=== PATIENT | male | born 1930 | race Caucasian/White ===

== ENCOUNTER 2019-04-01 04:39 | Inpatient (IN) | payer MEDICARE ==
[~2019-04-01] VITALS: Ht 180.3 cm; Wt 79.1 kg
[2019-04-01] VITALS (26 sets, daily range): BP systolic 88–145; BP diastolic 50–104; Ht 180.3 cm; Wt 79.1 kg
--- NOTE | ~2019-04-01 | HEMODYNAMI ---
PATIENT:CAROLYN RICHMOND MEDICAL RECORD: [id number] : [birth year] LOCATION:[facility] DDavieCV02 ADMISSION DATE: 04/01/19 Generatedon:04/01/201912:54 Patient name: CAROLYN RICHMOND Patient #: [id number] SSN: [id number] : 1930 Date of study: 04/01/2019 Page: Of Hemodynamic Procedure Report Patient Data Patient Demographics Procedure consent was obtained First Name: CAROLYN Gender: Male Last Name: BASILIO : 1930 Middle Initial: A Age: 89 year(s) Patient #: [id number] Race: SSN: [id number] Additional ID: [id number] Contact details Address: [facility] [address] KNOWN ADDRESS State: [place] City: [facility] [place], [place] Zip code: [address] Admission Admission Data Admission Date: 04/01/2019 Admission Time: 6:17 Arrival Date: 04/01/2019 Arrival Time: 6:17 Admit Source: Emergency Insurance Payor: None department Room #: D.CV02 Height (in.): 70.87 BSA: 2 (m2) Height (cm.): 180 BMI: 24.69 (kg/m2) Weight (lbs.): 176.37 Weight (kg.): 80 Lab Results Lab Result Date: 04/01/2019 Lab Result Time: 0:00 Biochemistry Name Units Result Min Max BUN mg/dl 23 --(----)-* 7 18 Creatinine mg/dl 0.8 --(-*--)-- 0.6 1.3 eGFR ml/min 90 --(*---)-- 90 120 NONAFRICAN CBC Name Units Result Min Max Hemoglobin g/dl 12.4 *-(----)-- 13.5 17.5 Procedure Procedure Types Cath Procedure Diagnostic Procedure LHC LHC w/Coronaries Procedure Description Procedure Date Procedure Date: 04/01/2019 Procedure Start Time: 12:26 Procedure End Time: 12:52 Procedure Staff Name Function Cliff Rose MD Performing Physician Kiersten Eldridge RT Monitor Nimco Ornelas RT Scrub Terell Villa RN Nurse Geneva Paul RN Commercial Account Executive Procedure Data Cath Procedure Fluoroscopy Diagnostic fluoroscopy Total fluoroscopy Time: 6.3 time: 6.3 min min Diagnostic fluoroscopy Total fluoroscopy dose: dose: 1343 mGy 1343 mGy Contrast Material Contrast Material Type Amount (ml) Isovue 300 112 Entry Location Entry Primary Successful Side Size Upsize Upsize Entry Closure Succes sful Closure Location (Fr) 1 (Fr) 2 (Fr) Remarks Device Remarks Femoral Right 5 Fr 6 Fr 6 Fr Exoseal artery Long Short Estimated blood loss: 5 ml Diagnostic catheters Device Type Used For End Catheter Placement MULTIPACK JL 4.0 5Fr Left Coronary catheter Angiography MULTIPACK 3DRC 5Fr Right Coronary catheter Angiography MULTIPACK Pigtail 5 Fr LV Angiography catheter MULTIPACK Pigtail 5 Fr LV Angiography catheter Procedure Complications No complications Procedure Medications Medication Administration Route Dosage 0.9% NaCl I.V. 100 ml/hr Oxygen etCO2 Nasal cannula 2 l/min Lidocaine 2% added to field 20 Heparin Flush Bag added to field 2 bags (1000units/500ml NS) Versed I.V. 2 mg Fentanyl I.V. 50 mcg Heparin Bolus I.V. 5000 units Integrilin (Bolus I.V. 7.3 ml 2mg/ml) Integrilin (Bolus wasted 2.7 ml 2mg/ml) Plavix P.O. 600 mg Hemodynamics Rest BSA: 2 (m2) HGB: 12.4 (g/dl) O2 Consumption: Estimated: 226.14 (ml/min) O2 Consu mption indexed: Estimated:113.07 (ml/min/m) Heart Rate: 70 (bpm) Pressure Samples Time Site Value (mmHg) Purpose Heart Use Rate(bpm) 12:45 LV 126/13,22 Snapshot 74 12:45 AO 151/86(114) Pullback 78 12:45 LV 129/16,21 Pullback 78 Gradients Valve Time Site 1 Site 2 Mean SEP/DFP Peak To Heart Use (mmHg) (sec/min) Peak Rate (mmHg) (bpm) Aortic 12:45 LV AO 0 78 129/16,21 151/86(114) Calculations Valve P-P Mean Valve Index Valve Source Name Gradient Area Flow (cm2) Aortic 0 0 Snapshots Pre Cath Intra NCS Post Cath Vital Signs Time Heart Resp SPO2 etCO2 NIBP (mmHg) Rhythm Pain Sedation Rate (ipm) (%) (mmHg) Status Level (bpm) 12:09:23 69 20 98 32.3 138/91(117) NSR 0 (11) 10(A) , No pain 12:13:33 71 13 99 17.2 133/78(95) NSR 0 (11) 10(A) , No pain 12:17:40 68 13 98 32.3 122/79(95) NSR 0 (11) 10(A) , No pain 12:21:46 69 13 99 12 114/73(96) NSR 0 (11) 9(A) , No pain 12:25:48 72 12 98 27.7 114/76(94) NSR 0 (11) 9(A) , No pain 12:29:50 72 13 97 17.2 116/73(90) NSR 0 (11) 9(A) , No pain 12:33:53 76 13 98 21.8 106/72(83) NSR 0 (11) 9(A) , No pain 12:37:59 67 11 98 18.8 102/56(78) NSR 0 (11) 9(A) , No pain 12:41:59 73 12 98 27.7 102/69(89) NSR 0 (11) 9(A) , No pain 12:46:45 75 12 97 29.2 134/89(106) NSR 0 (11) 10(A) , No pain 12:50:49 81 12 96 39.8 152/90(130) NSR 0 (11) 10(A) , No pain Medications Time Medication Route Dose Verified Delivered Reason Notes Effectiveness by by 12:08:41 0.9% NaCl I.V. 100 Cliff Bean used for ml/hr Rose Humberto procedure RN 12:08:48 Oxygen etCO2 2 Cliff Bean used for Nasal l/min Rose Humberto procedure cannula RN 12:08:53 Lidocaine 2% added 20ml Cliff Coronado for local to vial [facility] anesthetic field MD AVINA 12:08:57 Heparin Flush added 2 Cliff Coronado used for Bag to bags RoseJosef Rose procedure (1000units/500ml field MD AVINA NS) 12:16:39 Versed I.V. 2 mg Cliff Bean for sedation St Josef Paul MD RN 12:16:47 Fentanyl I.V. 50 Cliff Lotta for sedation mcg St Josef Paul MD RN 12:35:14 Heparin Bolus I.V. 5000 Cliff Lotta for verif ied units St Josef Paul anticoagulation with Dr. MD CHAY Fonseca 12:35:30 Integrilin I.V. 7.3 Cliff Lotta for (Bolus 2mg/ml) ml [facility] Josef Paul antiplatelet RN therapy 12:35:52 Integrilin wasted 2.7 Cliff Bean for (Bolus 2mg/ml) ml [facility] Josef Paul antiplatelet RN therapy 12:36:17 Plavix P.O. 600 Cliff Bean for mg [facility] Josef Paul antiplatelet RN therapy Procedure Log Time Note 11:42:37 Diagnostic Cath Status : Urgent 11:43:10 Informed consent obtained and on chart 11:44:54 Terell Villa RN sent for patient. Start room use. 11:44:56 Time tracking: Regular hours (M-F 7:00 - 5:00) 11:45:01 Plan of Care:Hemodynamics will remain stable., Cardiac rhythm will remain stable., Comfort level will be maintained., Respiratory function will remain adequate., Patient/ family verbilizes understanding of procedure., Procedure tolerated without complication., Recovers from procedure without complications.. 11:46:26 Admit Source: Emergency department 11:46:31 Arrival Date: 04/01/2019 6:17:00 AM 11:46:39 Insurance Payor : None 11:48:32 Lab Result : eGFR NONAFRICAN 90 ml/min 11:48:32 Lab Result : Hemoglobin 12.4 g/dl 11:48:32 Lab Result : BUN 23 mg/dl 11:48:32 Lab Result : Creatinine 0.8 mg/dl 11:48:45 Patient Weight : 176.37 lbs 11:48:51 Patient Height : 70.87 inches 11:57:28 Patient received from CVICU to CCL 2 Alert and oriented. Tansferred to table in Supine position. 11:57:29 Warm blankets applied, and refugio hugger turned on for patient comfort. 11:57:30 Correct patient and procedure confirmed by team. 11:57:31 ECG and BP/O2 sat monitors applied to patient. 12:00:08 Stress Test: no; N/A ? 12:03:41 Risk of Mortality: 6.4 12:03:49 Risk of blood transfusion: 5.8 12:03:55 Risk of ARBEN: 11.5 12:08:16 Vital chart was started 12:08:41 0.9% NaCl 100 ml/hr I.V. was administered by Geneva Paul RN; used for procedure; Verbal order read back and verified. 12:08:48 Oxygen 2 l/min etCO2 Nasal cannula was administered by Geneva Paul RN; used for procedure; Verbal order read back and verified. 12:08:53 Lidocaine 2% 20ml vial added to field was administered by Cliff Rose MD; for local anesthetic; Verbal order read back and verified. 12:08:57 Heparin Flush Bag (1000units/500ml NS) 2 bags added to field was administered by Cliff Rose MD; used for procedure; Verbal order read back and verified. 12:10:37 Baseline sample Acquired. 12:10:41 Rhythm: sinus rhythm 12:10:42 Full Disclosure recording started 12:10:47 H&P Date Dictated: 04/01/2019 New H&P dictated by physician.. 12:10:49 Pre-procedure instructions explained to patient. 12:10:49 Pre-op teaching completed and patient verbalized understanding. 12:10:51 Family in waiting room. 12:10:52 Patient NPO since Midnight. 12:10:57 Is the patient allergic to Iodine/contrast media? No. 12:10:58 Was the patient premedicated? Yes 12:11:01 Is patient on blood thinner?Yes 12:11:05 ACC The patient was administered the following blood thiners within the last 24 hours: ACCAspirin 12:11:09 Patient diabetic? No. 12:11:11 Previous problem with sedation/anesthesia? No ? 12:11:13 Snore? No 12:11:14 Sleep apnea? No 12:11:15 Deviated septum? No 12:11:16 Opens mouth fully? Yes 12:11:17 Sticks out tongue? Yes 12:11:19 Airway obstruction? No ? 12:11:22 Dentures? No ? 12:12:21 Pre procedure: right dorsailis pedis pulse 2+ Normal; easily identifiable; not easily obliterated 12:12:23 Pre procedure: left dorsailis pedis pulse 2+ Normal; easily identifiable; not easily obliterated 12:12:25 Patient pain scale 0/10 ?. 12:12:39 IV patent on arrival in left antecubital with 0.9% NaCl at [facility]. 12:12:42 Lab results completed and on chart. 12:12:52 Right groin area was prepped with chlora-prep and draped in sterile fashion 12:12:53 Alarms reviewed by R. N. 12:12:53 Sharps counted by scrub and verified by R.N. 12:12:58 Physician arrived 12:12:58 --------ALL STOP TIME OUT------ 12:12:59 Final Timeout: patient, procedure, and site verified with staff and physician. All members of the team are in agreement. 12:13:01 Right groin site verified by team. 12:13:05 Fire Safety Assessment: A--An alcohol-based skin anteseptic being used preoperatively., C--Open oxygen or nitrous oxide is being used., D--An ESU, laser, or fiber-optic light is being used. 12:13:09 Physical assessment completed. ASA score P 2 - A patient with mild systemic disease as per Cliff Rose MD. 12:13:15 1) 90+ Normal kidney functon but urine findings or structural abnormalities or genetic trait point to kidney disease. 12:13:33 Maximum allowable contrast dose (3.7 X eGFR X 0.75)250 ml. 12:13:38 Sedation plan: IV Moderate Sedation Medication:Versed, Fentanyl 12:13:56 Use device set Femoral Dx 12:13:58 ACIST Syringe (00917) opened to sterile field. 12:13:59 Bag Decanter (2002) opened to sterile field. 12:14:01 Medline Cath Pack ([id number]) opened to sterile field. 12:14:06 ACIST Hand Control (96361) opened to sterile field. 12:14:07 ACIST Manifold (28902) opened to sterile field. 12:14:08 DIAGNOSTIC Multipack 5Fr catheter set (RR3273) opened to sterile field. 12:14:09 Tegaderm 4 x 4 (1626W) opened to sterile field. 12:14:11 SHEATH 5FR [place] (BJE015) opened to sterile field. 12:14:12 EMERALD Guide Wire (502-133) opened to sterile field. 12:16:39 Versed 2 mg I.V. was administered by Geneva Paul RN; for sedation; Verbal order read back and verified. 12:16:47 Fentanyl 50 mcg I.V. was administered by Geneva Paul RN; for sedation; Verbal order read back and verified. 12:23:39 Zero performed for pressure channel P1 12:25:45 Procedure started. 12:26:06 Local anesthetic to right femoral artery with Lidocaine 2% by Cilff Rose MD.INITIAL ACCESS ONLY 12:26:17 A 5 Fr sheath was inserted into the Right Femoral artery 12:27:22 A MULTIPACK JL 4.0 5Fr catheter was advanced over the wire and used for Left Coronary Angiography. 12:27:34 LCA angiography performed. 12:27:38 Injector settings: Ml/sec: 3, Volume: 6, 12:29:34 Catheter removed. 12:29:39 A MULTIPACK 3DRC 5Fr catheter was advanced over the wire and used for Right Coronary Angiography. 12:30:41 RCA angiography performed. 12:30:47 Injector settings: Ml/sec: 3, Volume: 6, 12:31:26 Catheter removed. 12:31:47 ACCDominant side:Right 12:31:53 A MULTIPACK Pigtail 5 Fr catheter was advanced over the wire and used for LV Angiography. 12:33:25 Catheter removed. unable to cannulate vessel. 12:34:13 SHEATH 6FR [place] (EOV670) opened to sterile field. 12:34:14 WHISPER 300cm guide wire ([id number]) opened to sterile field. 12:34:14 INFLATOR Merit BasixCompak (GD6283) opened to sterile field. 12:34:34 SHEATH 6FR Brite Tip 35cm (078693U) opened to sterile field. 12:35:14 Heparin Bolus 5000 units I.V. was administered by Geneva Paul RN; for anticoagulation; verified with Dr. Fonseca Verbal order read back and verified. 12:35:23 GUIDE 6FR HS I catheter (LA6HSI) opened to sterile field. 12:35:30 Integrilin (Bolus 2mg/ml) 7.3 ml I.V. was administered by Geneva Paul RN; for antiplatelet therapy; Verbal order read back and verified. 12:35:36 Sheath upsized to a 6 Fr Long. 12:35:43 ACC Pre-intervention GWYN Flow is 3. 12:35:52 Integrilin (Bolus 2mg/ml) 2.7 ml wasted was administered by Geneva Paul RN; for antiplatelet therapy; Verbal order read back and verified. 12:36:00 Pre PCI Site: [place] mRCA has 90% stenosis. 12:36:06 ACC Pre-intervention GWYN Flow is 3. 12:36:12 6 Fr hs 1 guide catheter was inserted over the wire 12:36:17 Plavix 600 mg P.O. was administered by Geneva Paul RN; for antiplatelet therapy; Verbal order read back and verified. 12:38:28 whisper wire advanced. 12:38:32 Wire advanced across lesion. 12:39:01 Inflate balloon Inflation number: 1 A EMERGE OTW 3.0 x 20 balloon ([id number]) was prepped and advanced across the Mid RCA 90, then inflated to 10 MEET for 0:30 (min:sec) . 12:41:22 Balloon removed over the wire. 12:42:33 Place stent Inflation Number: 2 A INTEGRITY RX 3.5 x 26 stent ([id number]) was prepped and advanced across the Mid RCA 90. The stent was deployed at 14 MEET for 0:30 (min:sec) 0. 12:42:52 Guide catheter removed. 12:42:57 Stent catheter was removed intact over wire. 12:42:58 Wire removed. 12:42:58 ACC Post-intervention GWYN Flow is 3. 12:43:14 A MULTIPACK Pigtail 5 Fr catheter was advanced over the wire and used for LV Angiography. 12:45:12 LV hemodynamics recorded. 12:45:13 LV gram done using KIMBALL 12:45:17 Injector settings: Ml/sec: 5, Volume: 15, 12:45:40 EF : 25 % 12:45:51 Catheter removed. 12:46:21 Post PCI Site: [place] mRCA has 0% stenosis. 12:47:34 ACT drawn and resulted at 306 seconds. (normal therapeutic range 180-240 seconds). 12:49:52 Sheath upsized to a 6 Fr Short. 12:50:19 EXOSEAL 6Fr (EX600) opened to sterile field. 12:50:48 Sheath removed intact; hemostasis achieved with Exoseal to the Right Femoral artery. 12:50:50 Procedure ended.(Physican Out) 12:51:13 Fluoroscopy time 06.30 minutes. 12:51:18 Fluoroscopy dose: 1343 mGy 12:51:18 Flurop Dose total: 1343 12:51:23 Dose Area Product 09406 mGy/cm. 12:51:28 Contrast amount:Isovue 300 112ml. 12:51:29 Sharps counted by scrub and verified by R.N. 12:51:31 Maximum allowable dose exceeded? No. 12:51:36 Insertion/operative site no bleeding no hematoma. 12:51:39 Post-op/insertion site Right Femoral artery dressed using a 4 x 4 and Tegaderm. 12:51:40 Post Procedure Pulses reassessed and unchanged 12:51:43 Post procedure rhythm: unchanged. 12:51:47 Estimated blood loss: 5 ml 12:51:49 Post procedure instruction explained to patient.Patient verbalizes understanding. 12:51:52 Patient needs reinforcement of post procedure teaching. 12:51:53 Procedure and supply charges have been captured, reviewed, submitted and are correct. 12:52:02 Procedure Complication : No complications 12:52:04 Vital chart was stopped 12:52:10 [facility] Findings: MVD- PCI performed (see procedure note) 12:52:12 Operative report dictated upon procedure completion. 12:52:14 See physician's report for complete and final results. 12:52:[address] [facility]. 12:52:20 Patient transfered to [facility] with Stretcher. 12:52:24 Procedure ended. 12:52:24 Full Disclosure recording stopped 12:52:34 ACC-PCI Only Patient was given prescriptions, or instructed by Cliff Rose MD to start/continue the following medications upon discharge: Plavix 12:52:37 End room use (Document Last) 12:53:15 End room use (Document Last) 12:53:49 End room use (Document Last) Intervention Summary Intervention Notes Time ActionType Lesion and Equipment Action# Pressure Duration Attributes Used 12:39:01 Inflate Mid RCA EMERGE OTW 1 10 00:30 balloon 3.0 x 20 balloon ([id number]) 12:42:33 Place stent Mid RCA INTEGRITY RX 2 14 00:30 3.5 x 26 stent ([id number]) Device Usage Item Name Manufacture Quantity Catalog Number Hospital Part Current Mini mal Lot# / Charge Number Stock Stock Serial# Code ACIST Acist 1 79988 255472 038256 109916 20 Syringe Medical (93321) Systems Inc Bag Decanter Microtek 1 119503 98491 564527 5 () Medical Inc. Medline Cath Medline 1 [id number] 954159 46992 714193 5 Pack ([id number]) ACIST Hand Acist 1 71347 297652 516095 081387 5 Control Medical (97400) Systems Inc ACIST Acist 1 05475 707333 703966 147310 5 Manifold Medical (90203) Systems Inc DIAGNOSTIC Cardinal 1 CG7561 341563 79352 198020 30 Multipack Health 5Fr catheter set (RC9107) Tegaderm 4 x 3M 1 1626W 682146 625639 597563 5 4 (1626W) SHEATH 5FR Terumo 1 OTO479 264054 691731 193189 5 [place] (LOL368) EMERALD Cardinal 1 502-455 754331 261643 212977 5 Guide Wire Health (502-455) MULTIPACK JL Cardinal 1 950506 5 4.0 5Fr Health catheter MULTIPACK Cardinal 1 442133 5 3DRC 5Fr Health catheter MULTIPACK Cardinal 1 340288 5 Pigtail 5 Fr Health catheter SHEATH 6FR Terumo 1 UVK858 130844 099954 042837 40 [place] (LVI140) WHISPER Lam[place] 1 [id number] 011345 352379 366876 5 300cm guide Vascular wire (3291732MT) INFLATOR Merit 1 GC6325 960995 056164 173215 15 [place] [employer] Medical BasixCompak (TM2206) SHEATH 6FR Cardinal 1 [id number] 794567 755866 460475 1 Brite VIRIDAXIS Health 35cm (491113M) GUIDE 6FR HS Medtronic 1 LA6HSI 162917 86476 434966 1 I catheter (LA6HSI) EMERGE OTW [place] 1 [id number] 358992 917564 807454 5 40868937 3.0 x 20 Scientific balloon ([id number]) INTEGRITY RX Medtronic 1 [id number] 556794 681553 503857 5 [id number] 3.5 x 26 stent ([id number]) EXOSEAL 6Fr Cardinal 1 EX600 382499 713621 614156 10 (EX600) Health Signature Audit [place] Stage Time Signature Unsigned Intra-Procedure 04/01/2019 Kiersten Eldridge 12:53:15 PM RT(R) Intra-Procedure 04/01/2019 Geneva Paul 12:53:49 PM RN Intra-Procedure 04/01/2019 Cliff Guy 12:54:12 PM Josef AVINA Signatures Performing Physician : Signature : Cliff Rose MD Date : Time : Monitor : Kiersten Eldridge RT Signature : Date : Time : Nurse : Terell Villa RN Signature : Date : Time : [address] [place] [address]
[2019-04-01] MEDS ORDERED: ZOCOR20 MG PO (04:49)
[2019-04-01] MEDS ORDERED: COZAAR100 MG PO (04:49)
[2019-04-01] MEDS ORDERED: OMEPRAZOLE20 M1 PO (04:49)
[2019-04-01] MEDS ORDERED: COREG12.5 MG PO (04:49)
[2019-04-01] MEDS ORDERED: FLOMAX0.4 MG PO (04:50)
[2019-04-01] MEDS ORDERED: NITROSTAT0.4 MG SL (04:51)
[2019-04-01] MEDS ORDERED: CENTRUM MEN'S1 EACH PO (04:51)
[2019-04-01] MEDS ORDERED: NAPROSYN500 MG PO (04:51)
[2019-04-01] MEDS ORDERED: VITAMIN B-121000 MCG PO (04:52)
[2019-04-01] MEDS ORDERED: FLUTICASONE PRO16 GM NASAL (04:52)
[2019-04-01] MEDS ORDERED: AFRIN15 ML NASAL (04:52)
[2019-04-01] MEDS ORDERED: XANAX0.5 MG PO (04:53)
[2019-04-01 05:16] LABS: BASOPHILS 0.1 % (0-2); EOSINOPHILS 1.1 % (0-7); HEMATOCRIT 37.7 % (42.0-54.0); HEMOGLOBIN 12.4 g/dL (13.5-17.5); IMMATURE GRANULOCYTES 0.2 % (0-5); LYMPHOCYTES 10.8 % (15-50); MCH 30.5 pg (26.0-34.0); MCHC 32.9 g/dL (31.0-37.0); MCV 92.6 fL (80.0-100.0); MEAN PLATELET VOLUME 9.3 fL (7.4-10.4); MONOCYTES 7.4 % (2-11); NEUTROPHILS 80.4 % (40-80); PLATELET COUNT 131 10x3/uL (130-400); RBC 4.07 10x6/uL (4.20-6.10); RDW 14.1 % (11.5-14.5); WBC 10.1 10x3/uL (4.8-10.8)
[2019-04-01 05:32] LABS: INR 1.36 (0.85-1.17); PROTIME 16.2 SECONDS (11.6-15.0)
[2019-04-01 05:33] LABS: CALC OSMOLALITY 291 mosm/kg (275-300); CARBON DIOXIDE 28.2 mmol/L (21.0-32.0); CHLORIDE - SERUM 107 mmol/L (98-107); CREATININE - SERUM 0.8 mg/dL (0.6-1.3); GLUCOSE 145 mg/dL (74-106); POTASSIUM - SERUM 4.3 mmol/L (3.5-5.1); SODIUM 143 mmol/L (136-145); UREA NITROGEN 23 mg/dL (7-18); eGFR NON AFRICAN AMERICAN > 90 mL/min (90-120)
[2019-04-01 05:43] LABS: APTT 153.6 SECONDS (22.8-39.4)
[2019-04-01 05:56] LABS: ALBUMIN 3.5 g/dL (3.4-5.0); ALKALINE PHOSPHATASE 104 U/L (46-116); ALT (SGPT) 23 U/L (10-68); BILIRUBIN - TOTAL 0.63 mg/dL (0.2-1.3); CKMB 32.9 U/L (0.0-3.6); CREATINE KINASE 248 UL (21-232); MAGNESIUM - SERUM 1.8 mg/dL (1.8-2.4); PRO BNP 1993 pg/mL (0-450); PROTEIN - SERUM 6.3 g/dL (6.4-8.2)
[2019-04-01 06:01] LABS: TROPONIN-I 8.075 ng/mL (0.000-0.060)
--- NOTE | 2019-04-01 07:00 | NUR ---
REC'D FROM ER, AWAKE AND ORIENTED, C/O OF PAIN IN RIGHT UPPER CHEST, NITRO PASTE TO LEFT CHEST, O2 VIA NC AT 2L, VSS, ASSESSMENT COMPLETED PER FLOWSHEET, ACCLAMATED TO CVICU, ASSESSMENT COMPLETED PER FLOWSHEET, REPOSITIONED UP IN BED WITH PERSONNEL X2, FAMILY AT BEDSIDE, AWAITING TO SPEAK WITH [facility] JERRY MCLEAN RE: CATH PROCEDURE, NO OTHER NEEDS AT THIS TIME
--- NOTE | 2019-04-01 09:00 | NUR ---
MORNING MEDS INTITATED PER MAR FLOWSHEET
[2019-04-01 09:39] LABS: ALT (SGPT) 23 U/L (10-68); CALC OSMOLALITY 291 mosm/kg (275-300); CARBON DIOXIDE 29.2 mmol/L (21.0-32.0); CHLORIDE - SERUM 107 mmol/L (98-107); CHOL - HDL RATIO 2.5 ratio (2.3-4.9); CHOLESTEROL, TOTAL 106 mg/dL (0-200); CREATININE - SERUM 0.8 mg/dL (0.6-1.3); GLUCOSE 149 mg/dL (74-106); HDL CHOLESTEROL 43 mg/dL (32-96); LDL CHOLESTEROL 60 mg/dL (0-100); LDL-HDL RATIO 1.4 ratio (1.5-3.5); POTASSIUM - SERUM 4.3 mmol/L (3.5-5.1); SODIUM 143 mmol/L (136-145); TRIGLYCERIDE 15 mg/dL (30-200); UREA NITROGEN 23 mg/dL (7-18); eGFR NON AFRICAN AMERICAN > 90 mL/min (90-120)
--- NOTE | 2019-04-01 11:12 | CN ---
PATIENT NAME:CAROLYN RICHMOND MEDICAL RECORD: [id number] : [birth year] LOCATION:[email or web address] ADMIT DATE: 04/01/19 ACCOUNT: [id number] CONSULTING PHYSICIAN: SORAYA CADENA MD REFERRING PHYSICIAN: SORAYA CADENA MD DATE OF CONSULTATION: 04/01/2019 HISTORY OF PRESENT ILLNESS: An 89-year-old gentleman with a known history of coronary artery disease, status post intervention vessel unknown approximately 10 years ago, was actually on a touring trip outside of [place], presented to [place], had onset of chest pain, pressure, tightness, radiating to the left arm and jaw accompanied by shortness of breath, nausea, found to have inferior myocardial infarction. Received thrombolytic therapy and transferred here. Upon arrival, pain free with normalization of his ST segments consistent with previous fusion. We are asked to see him concerning his cardiovascular status. PAST MEDICAL HISTORY: Includes: 1. History of hypertension. 2. Hyperlipidemia. 3. Coronary artery disease as described above. 4. Osteoarthritis. MEDICATIONS: Typically include Naprosyn 500 mg p.o. b.i.d., Xanax 0.5 mg q.8 hours p.r.n., Zocor 20 every day, losartan 100 every day, carvedilol 12.5 b.i.d., and Flomax 0.4 every day. SOCIAL HISTORY: Nonsmoker, nondrinker, walks at least 2 miles a day. Easily takes care of all his ADLs. REVIEW OF SYSTEMS: The patient reports easy bruising but reports no swollen glands. The patient reports no fever, no night sweats, no significant weight gain, no significant weight loss. No significant exercise tolerance. The patient reports no dry eyes, no irritation, no vision change. Patient reports no difficulty hearing and no ear pain. Patient reports no frequent nose bleeds or nose and sinus problems. Patient reports on arm pain on exertion. No shortness of breath while lying down. No history of heart murmur. Patient reports no cough, no wheezing or coughing up blood. Patient reports no abdominal pain, no vomiting. Normal appetite. No diarrhea and not vomiting blood. No nausea and no constipation. Patient reports no incontinence. No difficulty urinating. No hematuria. No increased frequency. Patient reports no muscle aches. No weakness, no arthralgias, no back pain. No swelling of the extremities. Patient reports no abnormal mole, no jaundice, no rashes. Reports no loss of consciousness. No weakness and no numbness. No seizures, dizziness, or headaches. The patient reports no depression, no sleep disturbance, feeling safe in a relationship and no alcohol abuse. Patient reports on fatigue. Reports no runny nose or sinus pressure. No itching, no hives, and no frequent sneezing. PHYSICAL EXAMINATION: GENERAL: Pleasant gentleman in no acute distress, appears younger than stated age. VITAL SIGNS: Blood pressure 115/67, pulse 64 and regular. HEENT: Normocephalic, atraumatic. NECK: No JVD or bruit. HEART: Regular, S4 gallop is noted. CONSULT REPORT [id number] CAROLYN RICHMOND LUNGS: Good air excursion. ABDOMEN: Soft, nontender. EXTREMITIES: Pulses 2+ with no edema. DIAGNOSTIC DATA: ECG shows nonspecific ST-T changes, no ST elevation at this point. IMPRESSION: Acute inferior myocardial infarction, status post thrombolytics. He has had some stuttering pain since arrival. PLAN: For angiography, intervention based on the above. TRANSINT:[id number] Voice Confirmation ID: [id number] DOCUMENT ID: [id number] SORAYA CADENA MD at 1112 CC: [id number] DICTATION DATE: 04/01/19815 RELIABILITY MANAGER: 04/01/19 1041 ADM IN [place] [id number] [place] [address]
--- NOTE | 2019-04-01 13:10 | NUR ---
BACK FROM CATH, RIGHT GROIN WITH FEMSTOP IN PLACE, NO BLEEDING OR HEMATOMA NOTED, B/L PEDAL PULSES +, DROWSEY BUT FOLLOWS DIRECTIONS, VSS, FAMILY TO BEDSIDE, STATUS UPDATED, NO OTHER NEEDS AT THIS TIME
--- NOTE | 2019-04-01 13:51 | NUR ---
BHAKTA TO ROOM, HAVING SHARP PAIN IN UPPER LEFT CHEST, MORPHINE 4MG VIP GIVNE PER PRN ORDER, FAMILY AT BEDSIDE, NO OTHER NEEDS AT THIS TIME
--- NOTE | 2019-04-01 15:00 | NUR ---
FEMSTOP OFF RIGHT GROIN, SITE CDI, NO BLEEDING, OR EDEMA, VSS, NO OTHER ACUTE CHANGE FROM PREVIOUS ASSESSMENT
--- NOTE | 2019-04-01 19:00 | NUR ---
REPORT RECEIVED FROM OFF GOING NURSE. PT IS SITTING UP IN BED WITH EYES CLOSED. NO NEEDS VOICED. NO S/S OF DISTRESS. WILL CONTINUE TO MONITOR.
--- NOTE | 2019-04-01 19:14 | MORECARE ---
CASE MANAGEMENT DISCHARGE SUMMARY PATIENT: CAROLYN RICHMOND UNIT: [id number] ADM DATE: 04/01/19 AGE: 89 : [birth year] SEX: M ROOM/BED: D[facility] AUTHOR: TRINI BERRY PHYSICIAN: REFERRING PHYSICIAN: SORAYA CADENA MD DATE OF SERVICE: 04/01/19 Discharge Plan Patient Name: CAROLYN RICHMOND [facility] [facility] 1930 Planned Disposition: Anticipated Discharge Date: Discharge Date: Expected LOS: Initial Reviewer: [email or web address] Initial Review Date: 04/01/2019 Generated: 04/01/19 8:13 pm Comments DCP- Discharge Planning Updated by [email or web address]: Maye Rose on 04/01/19 6:[address] CM attempted to see patient for discharge planning. Patient was sleeping CM will assess discharge planning in am. CM will continue to follow and assist as needed with discharge planning / needs. Patient Name: CAROLYN RICHMOND Page [phone] at 1914 All edits/amendments must be made on the electronic document DICTATION DATE: 04/01/191912 CHEMICAL MANAGER: YENNIFER 04/01/191912 RPT#: [id number] DC DATE: STATUS: ADM IN [facility] [address] [place] [address] END OF REPORT
--- NOTE | 2019-04-01 21:00 | NUR ---
PT IS SITTING UP IN BED. PT REQUESTED A SANDWHICH, ONE WAS PROVIDED. PT VOICED NO FURTHER NEEDS. NO S/S OF DISTRESS NOTED. WILL CONTINUE TO MONITOR.
--- NOTE | 2019-04-01 23:00 | NUR ---
REASSESSMENT COMPLETED, SEE FLOWSHEET FOR DETAILS. PT IS SITTING UP IN BED WITH EYES CLOSED AT THIS TIME. NO NEEDS VOICED. NO S/S OF DISTRESS NOTED. WILL CONTINUE TO MONITOR.
[2019-04-02] VITALS (12 sets, daily range): BP systolic 98–178; BP diastolic 55–146
--- NOTE | 2019-04-02 01:00 | NUR ---
PT IS LAYING IN BED WITH EYES CLOSED AT THIS TIME. NO NEEDS VOICED. NO S/S OF DISTRESS NOTED. WILL CONTINUE TO MONITOR.
--- NOTE | 2019-04-02 03:00 | NUR ---
REASSESSMENT COMPLETED, SEE FLOWSHEET FOR DETAILS. PT IS LAYING IN BED WITH EYES CLOSED. NO NEEDS VOICED. NO S/S OF DISTRESS NOTED. WILL CONTINUE TO MONITOR.
--- NOTE | 2019-04-02 05:00 | NUR ---
PT IS LAYING IN BED WITH EYES CLOSED AT THIS TIME. NO NEEDS VOICED. NO S/S OF DISTRESS NOTED. DRESSING TO RIGHT GROIN CDI. WILL CONTINUE TO MONITOR.
--- NOTE | 2019-04-02 07:00 | NUR ---
REC'D REPORT AND RESUMED CARE, SLEEPNG, AROSABLE TO VERBAL STIMULI, ORIENTED X3, O2 VIA NC AT 2L, SAT 98%, ASSESSMENT COMPLETED PER FLOWSHEET, CALL LIGHT IN REACH, DENIES PAIN, NO NEEDS AT THIS TIME
--- NOTE | 2019-04-02 07:45 | NUR ---
OOB TO CHAIR FOR BREAKFAST, TOLERATED TRANSFER WITHOUT DIFFICULTY
--- NOTE | 2019-04-02 08:00 | NUR ---
FAMILY AT BEDSIDE, STATUS UPDATED, AWAITING TO SPEAK WITH DR. CADENA
--- NOTE | 2019-04-02 08:40 | NUR ---
0821 DR CADENA AT BEDSIDEFOR EVAL, NEW ORDER FOR DISCHARGE GIVEN
[2019-04-02] MEDS ORDERED: PLAVIX75 MG PO (09:50)
--- NOTE | 2019-04-02 11:00 | NUR ---
DC'D TO PERSONNEL VEHICLE AAO WITH FAMILY, NO NEEDS AT THIS TIME
--- NOTE | 2019-04-02 15:17 | OP ---
PATIENT NAME: CAROLYN RICHMOND MEDICAL RECORD: [id number] :[birth year] LOCATION:[facility] Dempsey.CV02 ADMISSION DATE:04/01/19 SURGEON: SORAYA CADENA MD DATE OF OPERATION: 04/01/2019 PROCEDURE: Left heart catheterization, selective coronary angiography, right femoral artery approach. CATHETERS: A 5-Angolan sheath, 5/4 left and right Chayo, 5/4 pig. The procedure was well tolerated. The patient returned to garrett, sheath removed. ExoSeal device placed. FINDINGS: Left ventriculography in 30-degree KIMBALL view shows really a global hypokinesis with reduced EF, estimated EF at 25% to 30%. CORONARY ANATOMY: LEFT MAIN: Left main is free of disease. LAD: has about a 70% stenosis in mid portion. Stent into the diagonal itself shows maybe 30% restenosis, otherwise widely patent. CIRCUMFLEX: Circumflex system has a previously placed stent, maybe 50% restenosed. RIGHT CORONARY ARTERY: Dominant artery, gives rise to PDA. 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 After a 5-Angolan sheath was exchanged for a long 6-Angolan sheath secondary to tortuosity of the iliacs and torque ability, a hockey stick guide catheter provided excellent guide catheter support followed by 300-cm Whisper wire. Predeployment balloon was a 3.0 x 15 mm [place] balloon up to 18 atmospheres up and down the lesion. Stent deployed was a 26-mm x 3.5 Integrity stent up to 14 atmospheres for 45 seconds. Final angiography shows excellent resolution of a long diffuse subtotal stenosis, no significant residual. GWYN flow was 3 throughout the procedure. Could consider intervention to the LAD at a later date. The patient already on beta blockade as well as ARB and will need reimaging of LV function down the road at some point to see if indication/need for device therapy. TRANSINT:[id number] Voice Confirmation ID: [id number] DOCUMENT ID: [id number] SORAYA CADENA MD at 1517 CC: [id number] DICTATION DATE: 04/01/19 1257 EDUCATIONAL SIGN LANGUAGE INTERPRETER: 04/01/19 1309 DIS IN 04/02/19 [address] [place] [address]
--- NOTE | 2019-04-02 16:19 | MORECARE ---
CASE MANAGEMENT DISCHARGE SUMMARY PATIENT: CAROLYN RICHMOND UNIT: [id number] ADM DATE: 04/01/19 AGE: 89 : [birth year] SEX: M ROOM/BED: D[facility] AUTHOR: TRINI BERRY PHYSICIAN: REFERRING PHYSICIAN: SORAYA CADENA MD DATE OF SERVICE: 04/02/19 Discharge Plan Patient Name: CAROLYN RICHMOND Facility: [facility]:[place] : 1930 Planned Disposition: Home Anticipated Discharge Date: Discharge Date: 04/02/2019 Expected LOS: Initial Reviewer: [email or web address] Initial Review Date: 04/01/2019 Generated: 04/02/19 5:19 pm Comments DCP- Discharge Planning Updated by [email or web address]: Maye Rose on 04/01/19 6:[address] CM attempted to see patient for discharge planning. Patient was sleeping CM will assess discharge planning in am. CM will continue to follow and assist as needed with discharge planning / needs. Last DP export: 04/01/19 6:14 Patient Name: CAROLYN RICHMOND Page [id number] at 1619 All edits/amendments must be made on the electronic document DICTATION DATE: 04/02/191618 PARTS ANALYST: YENNIFER 04/02/191618 RPT#: [id number] DC DATE:04/02/19 STATUS: DIS IN [facility] [address] [place] [address] END OF REPORT
--- NOTE | 2019-04-02 18:17 | MORECARE ---
CASE MANAGEMENT DISCHARGE SUMMARY PATIENT: CAROLYN RICHMOND UNIT: [id number] ADM DATE: 04/01/19 AGE: 89 : [birth year] SEX: M ROOM/BED: D.CV02 AUTHOR: KRISTIDOC PHYSICIAN: REFERRING PHYSICIAN: SORAYA CADENA MD DATE OF SERVICE: 04/02/19 Discharge Plan Patient Name: CAROLYN RICHMOND Facility: [facility]:[place] : 1930 Planned Disposition: Home Anticipated Discharge Date: Discharge Date: 04/02/2019 Expected LOS: Initial Reviewer: [email or web address] Initial Review Date: 04/01/2019 Generated: 04/02/19 7:17 pm Comments DCP- Discharge Planning Updated by [email or web address]: Maye Rose on 04/02/19 5:[address] Patient Name: CAROLYN RICHMOND Admission Status: ER Accout number: [id number] Admission Date: 04-01-2019 : 1930 Admission Diagnosis: Attending: SORAYA CADENA Current LOS: 1 Anticipated DC Date: Planned Disposition: Home [place] [facility] [place] Discharge Planning Comments: CM met with patient at bedside after explaining CM role and obtaining verbal consent. Patient lives at home alone where he is independent with his care and plans to return there upon discharge. Patient feels this would be a safe discharge. CM discussed availability / needs of home health and medical equipment. Patient denies any discharge needs at this time. Patient states he will have his family drive him home upon discharge. CM will continue to follow and assist as needed with discharge planning / needs. Supervisor Fish [employer]chery: Maye Rose DCP- Discharge Planning Updated by [email or web address]: Maye Rose on 04/01/19 6:[address] CM attempted to see patient for discharge planning. Patient was sleeping CM will assess discharge planning in am. CM will continue to follow and assist as needed with discharge planning / needs. DCPIA - Discharge Planning Initial Assessment Updated by [email or web address]: Maye Rose on 04/02/19 6:15 pm * Is the patient Alert and Oriented? Yes * How many steps to enter\exit or inside your home? * PCP [facility] * [facility], [place] * Preadmission Environment Home Alone * ADLs Independent * Equipment None * List name and contact numbers for known caregivers / representatives who currently or will assist patient after discharge: Hayden RICHMOND - SON - [phone] * Verbal permission to speak to the caregivers and representatives has been obtained from the patient. Yes * Community resources currently utilized None * Additional services required to return to the preadmission environment? No * Can the patient safely return to the preadmission environment? Yes * Has this patient been hospitalized within the prior 30 days at any hospital? No Last DP export: 04/02/19 3:19 Patient Name: CAROLYN RICHMOND Page [id number] at 1817 All edits/amendments must be made on the electronic document DICTATION DATE: 04/02/191816 COMMISSARY REPRESENTATIVE: YENNIFER 04/02/191816 RPT#: [id number] DC DATE:04/02/19 STATUS: DIS IN [facility] [address] [place] [address] END OF REPORT
--- NOTE | 2019-04-02 18:28 | MORECARE ---
CASE MANAGEMENT DISCHARGE SUMMARY PATIENT: CAROLYN RICHMOND UNIT: [id number] ADM DATE: 04/01/19 AGE: 89 : [birth year] SEX: M ROOM/BED: D.CV02 AUTHOR: KRISTIDOC PHYSICIAN: REFERRING PHYSICIAN: SORAYA CADENA MD DATE OF SERVICE: 04/02/19 Discharge Plan Patient Name: CAROLYN RICHMOND Facility: [facility]:[place] : 1930 Planned Disposition: Home Anticipated Discharge Date: Discharge Date: 04/02/2019 Expected LOS: Initial Reviewer: [email or web address] Initial Review Date: 04/01/2019 Generated: 04/02/19 7:28 pm Comments DCP- Discharge Planning Updated by [email or web address]: Maye Rose on 04/02/19 5:[address] Patient Name: CAROLYN RICHMOND Admission Status: ER Accout number: [id number] Admission Date: 04-01-2019 : 1930 Admission Diagnosis: Attending: SORAYA CADENA Current LOS: 1 Anticipated DC Date: Planned Disposition: Home [place] [facility] [place] Discharge Planning Comments: CM met with patient at bedside after explaining CM role and obtaining verbal consent. Patient lives at home alone where he is independent with his care and plans to return there upon discharge. Patient feels this would be a safe discharge. CM discussed availability / needs of home health and medical equipment. Patient denies any discharge needs at this time. Patient states he will have his family drive him home upon discharge. CM will continue to follow and assist as needed with discharge planning / needs. Business Management Consultant: Maye Rose DCP- Discharge Planning Updated by [email or web address]: Maye Rose on 04/01/19 6:[address] CM attempted to see patient for discharge planning. Patient was sleeping CM will assess discharge planning in am. CM will continue to follow and assist as needed with discharge planning / needs. DCPIA - Discharge Planning Initial Assessment Updated by [email or web address]: Maye Rose on 04/02/19 6:15 pm * Is the patient Alert and Oriented? Yes * How many steps to enter\exit or inside your home? * PCP [facility] * Pharmacy [facility], [place] * Preadmission Environment Home Alone * ADLs Independent * Equipment None * List name and contact numbers for known caregivers / representatives who currently or will assist patient after discharge: Haydne RICHMOND - SON - [phone] * Verbal permission to speak to the caregivers and representatives has been obtained from the patient. Yes * Community resources currently utilized None * Additional services required to return to the preadmission environment? No * Can the patient safely return to the preadmission environment? Yes * Has this patient been hospitalized within the prior 30 days at any hospital? No Last DP export: 04/02/19 5:17 Patient Name: CAROLYN RICHMOND Page [id number] at 1828 All edits/amendments must be made on the electronic document DICTATION DATE: 04/02/191827 GERIATRICIAN: YENNIFER 04/02/191827 RPT#: [id number] DC DATE:04/02/19 STATUS: DIS IN [facility] [address] [place] [address] END OF REPORT
--- NOTE | 2019-04-03 13:03 | DS ---
PATIENT:CAROLYN RIHCMOND :[birth year] MEDICAL RECORD: [id number] DISCHARGE SUMMARY ADMISSION DATE: 04/01/19 DISCHARGE DATE: 04/02/19 PROBLEM LIST: Acute inferior myocardial infarction. SECONDARY DIAGNOSES: 1. Cardiomyopathy. 2. Hypertension. 3. Hyperlipidemia. BRIEF HISTORY AND HOSPITAL COURSE: An 89-year-old gentleman is admitted upon transfer from [place] with acute inferior myocardial infarction, received thrombolytics, re-perfused, found to have greater than 90% stenosis in the right coronary, underwent DISTRIBUTION OPERATIONS SUPERVISOR and stenting, did have LV dysfunction with EF 30%. Beta-blockade and ARB were continued as well as a statin therapy. Discharged home in good condition, has a followup with his quality assurance nurse in [place] on 04/20/2019. ACTIVITY: As tolerated. DIET: AHA diet. TRANSINT:[id number] Voice Confirmation ID: [id number] DOCUMENT ID: [id number] SORAYA CADENA MD at 1303 CC: [id number] DICTATION DATE: 04/02/19 0845 BIT TRIPOLER: 04/03/19 0017 DIS IN 04/02/19 [facility] [address] [place] [address]
== END 2019-04-02 10:40 | disposition home or self-care (01) | DRG 249 ==
LOC: D.ER 04:39 → D.CVICU 06:17
PROVIDERS: Emergency Medicine; ADMIT Internal Medicine Interventional Cardiology; ATTEND Internal Medicine Interventional Cardiology
PROC: B2151ZZ Fluoroscopy of Left Heart using Low Osmolar Contrast (ICD-10-PCS; 2019-04-01)
PROC: 4A023N7 Measurement of Cardiac Sampling and Pressure, Left Heart, Percutaneous Approach (ICD-10-PCS; 2019-04-01)
PROC: 02703DZ Dilation of Coronary Artery, One Artery with Intraluminal Device, Percutaneous Approach (ICD-10-PCS; principal; 2019-04-01 11:45)
PROC: B2111ZZ Fluoroscopy of Multiple Coronary Arteries using Low Osmolar Contrast (ICD-10-PCS; 2019-04-01 11:45)
DX: I21.19 ST elevation (STEMI) myocardial infarction involving other coronary artery of inferior wall (principal); I42.9 Cardiomyopathy, unspecified; I10 Essential (primary) hypertension; E78.5 Hyperlipidemia, unspecified; I25.10 Atherosclerotic heart disease of native coronary artery without angina pectoris; M19.90 Unspecified osteoarthritis, unspecified site